=== PATIENT | female | born 1990 | race Caucasian/White ===

== ENCOUNTER 2017-07-11 19:36 | Emergency (ER) | payer MEDICAID, BC ==
[2017-07-11] MEDS: SOD CHLORIDE 0.9% 1,000 ML IV (21:57)
[2017-07-11 22:17] LABS: ADD MAN DIFF? NO
[2017-07-11 22:19] LABS: WHITE BLOOD COUNT 12.7 10^3/ul (4.8-10.8)
[2017-07-11 22:19] LABS: BASOPHILS % 0.3 % (0.0-2.0); EOSINOPHILS # 0.1 10^3/ul (0.0-0.5); EOSINOPHILS % 0.7 % (0.0-7.0); HEMATOCRIT 41.4 % (37.0-47.0); HEMOGLOBIN 13.9 g/dl (12.0-16.0); LYMPHOCYTES # 3.2 10^3/ul (0.8-2.9); LYMPHOCYTES % 25.1 % (15.0-51.0); MEAN CORPUSCULAR HGB CONC 33.6 g/dl (32.0-37.0); MEAN CORPUSCULAR VOLUME 86.3 fl (82.0-101.0); MEAN PLATELET VOLUME 11.7 fl (7.4-10.4); MONOCYTE # 0.8 10^3/ul (0.3-0.9); MONOCYTES % 5.9 % (0.0-11.0); NEUTROPHIL # 8.6 10^3/ul (1.6-7.5); NEUTROPHILS % 67.7 % (39.0-77.0); PLATELET COUNT 291 10^3/UL (140-415); RED CELL DISTRIBUTION WIDTH 12.4 % (11.5-14.5)
[2017-07-11 22:32] LABS: ADD UMIC NO; UR ASCORBIC ACID NEGATIVE (NEGATIVE); UR BILIRUBIN (Dip) NEGATIVE (NEGATIVE); UR BLOOD (Dip) NEGATIVE (NEGATIVE); UR CLARITY SLIGHTLY CLOUDY (CLEAR); UR COLOR YELLOW (YELLOW); UR GLUCOSE (Dip) NEGATIVE (NEGATIVE); UR KETONES (Dip) TRACE mg/dL (NEGATIVE); UR LEUKOCYTE ESTERASE (Dip) NEGATIVE Leu/ul (NEGATIVE); UR MUCUS MANY /HPF (NONE SEEN); UR NITRITE (Dip) NEGATIVE (NEGATIVE); UR RBC 0 /HPF (0-5); UR SPECIFIC GRAVITY (Dip) 1.028 (1.003-1.030); UR SQUAMOUS EPITHELIAL CELL MODERATE /HPF (FEW); UR TOTAL PROTEIN (Dip) NEGATIVE (NEGATIVE); UR UROBILINOGEN (Dip) NEGATIVE (NEGATIVE); UR WBC 1 /HPF (0-5)
[2017-07-11 22:39] LABS: ANION GAP 15 (8-16); BLOOD UREA NITROGEN 9 mg/dl (7-20); CALCIUM 9.8 mg/dl (8.4-10.2); CARBON DIOXIDE 24 mmol/L (21-31); CHLORIDE 104 mmol/L (97-110); CREATININE 0.49 mg/dl (0.44-1.00); GLUCOSE 93 mg/dl (70-220); POTASSIUM 3.9 mmol/L (3.5-5.1); SODIUM 139 mmol/L (135-144)
== END 2017-07-11 23:01 | disposition home or self-care (01) ==
LOC: FTE 19:36
DX: O21.1 Hyperemesis gravidarum with metabolic disturbance (principal); Z3A.12 12 weeks gestation of pregnancy
CPT/HCPCS: 36415; 76801; 80048; 81001; 81003; 85025; 99285-25

== ENCOUNTER 2017-09-23 12:26 | Emergency (ER) | payer OTHER ==
[2017-09-23 12:57] LABS: ADD MAN DIFF? NO
[2017-09-23 13:09] LABS: BASOPHILS % 0.3 % (0.0-2.0); EOSINOPHILS # 0.1 10^3/ul (0.0-0.5); EOSINOPHILS % 0.4 % (0.0-7.0); HEMATOCRIT 37.3 % (37.0-47.0); HEMOGLOBIN 12.5 g/dl (12.0-16.0); LYMPHOCYTES # 2.1 10^3/ul (0.8-2.9); LYMPHOCYTES % 17.1 % (15.0-51.0); MEAN CORPUSCULAR HEMOGLOBIN 28.8 pg (29.0-33.0); MEAN CORPUSCULAR HGB CONC 33.5 g/dl (32.0-37.0); MEAN CORPUSCULAR VOLUME 85.9 fl (82.0-101.0); MONOCYTE # 0.7 10^3/ul (0.3-0.9); MONOCYTES % 5.5 % (0.0-11.0); NEUTROPHIL # 9.1 10^3/ul (1.6-7.5); NEUTROPHILS % 75.6 % (39.0-77.0); PLATELET COUNT 249 10^3/UL (140-415); RED BLOOD COUNT 4.34 10^6/ul (4.20-5.40); RED CELL DISTRIBUTION WIDTH 13.7 % (11.5-14.5)
[2017-09-23 13:38] LABS: ANION GAP 14 (8-16); BLOOD UREA NITROGEN 10 mg/dl (7-20); CALCIUM 9.2 mg/dl (8.4-10.2); CARBON DIOXIDE 19 mmol/L (21-31); CHLORIDE 107 mmol/L (97-110); CREATININE 0.49 mg/dl (0.44-1.00); GLUCOSE 92 mg/dl (70-220); POTASSIUM 3.8 mmol/L (3.5-5.1); SODIUM 136 mmol/L (135-144)
[2017-09-23 13:49] LABS: TROPONIN-I < 0.010 ng/ml (0.000-0.120)
== END 2017-09-23 15:39 | disposition home or self-care (01) ==
LOC: E/R 12:26
DX: R55 Syncope and collapse (principal)
CPT/HCPCS: 71045; 80048; 84484; 85025; 93005; 99285-25

== ENCOUNTER 2017-12-29 11:58 | Emergency (ER) | payer OTHER | END 2017-12-29 13:36 | disposition home or self-care (01) | LOC: FTE 11:58 | DX: O99.513 Diseases of the respiratory system complicating pregnancy, third trimester (principal); J32.9 Chronic sinusitis, unspecified; J06.9 Acute upper respiratory infection, unspecified; Z3A.37 37 weeks gestation of pregnancy | CPT/HCPCS: 99283; Z7502 ==

== ENCOUNTER 2017-12-29 12:58 | Outpatient (CLI) | payer OTHER | END 2017-12-29 15:19 | disposition home or self-care (01) | LOC: OBT 12:58 → L-D 12:58 → OBT 15:19 | DX: O62.9 Abnormality of forces of labor, unspecified (principal); Z3A.36 36 weeks gestation of pregnancy | CPT/HCPCS: 76818 ==

== ENCOUNTER 2018-01-16 19:11 | Inpatient (IN) | payer OTHER ==
[2018-01-16 20:09] LABS: ADD UMIC YES; UR ASCORBIC ACID NEGATIVE (NEGATIVE); UR BACTERIA FEW /HPF (NONE SEEN); UR BILIRUBIN (Dip) NEGATIVE (NEGATIVE); UR BLOOD (Dip) NEGATIVE (NEGATIVE); UR CLARITY SLIGHTLY CLOUDY (CLEAR); UR COLOR YELLOW (YELLOW); UR GLUCOSE (Dip) NEGATIVE (NEGATIVE); UR KETONES (Dip) 2+ mg/dL (NEGATIVE); UR LEUKOCYTE ESTERASE (Dip) 3+ Leu/ul (NEGATIVE); UR MUCUS FEW /HPF (NONE SEEN); UR NITRITE (Dip) NEGATIVE (NEGATIVE); UR RBC 4 /HPF (0-5); UR SPECIFIC GRAVITY (Dip) 1.015 (1.003-1.030); UR SQUAMOUS EPITHELIAL CELL FEW /HPF (FEW); UR TOTAL PROTEIN (Dip) NEGATIVE (NEGATIVE); UR UROBILINOGEN (Dip) 2+ mg/dL (NEGATIVE); UR WBC 3 /HPF (0-5)
[2018-01-16] MEDS: SOD CHLORIDE 0.9% 1,000 ML IV (22:40)
[2018-01-16] MEDS ORDERED: ACETAMINOPHEN 325 MG TAB (23:35)
[2018-01-16] MEDS: CEFTRIAXONE 1 GM/50 ML (PMX) 50 ML IVPB (23:40)
[2018-01-16] MEDS: ACETAMINOPHEN 325 MG TAB PO (23:45)
[2018-01-17] MEDS ORDERED: OXYTOCIN 30 UNITS/LR 500 ML IV (01:30)
[2018-01-17] MEDS ORDERED: METHYLERGONOVINE 0.2 MG INJ IM (01:30)
[2018-01-17] MEDS ORDERED: CARBOPROST 250 MCG INJ IM (01:30)
[2018-01-17] MEDS ORDERED: MISOPROSTOL 200 MCG TAB PR (01:30)
[2018-01-17] MEDS: LACTATED RINGER'S 1,000 ML IV ×3 (01:47→19:40)
[2018-01-17 04:20] LABS: ADD MAN DIFF? NO
[2018-01-17 04:24] LABS: BASOPHILS % 0.3 % (0.0-2.0); EOSINOPHILS # 0.1 10^3/ul (0.0-0.5); EOSINOPHILS % 0.6 % (0.0-7.0); HEMATOCRIT 31.7 % (37.0-47.0); HEMOGLOBIN 10.2 g/dl (12.0-16.0); LYMPHOCYTES # 2.6 10^3/ul (0.8-2.9); LYMPHOCYTES % 23.5 % (15.0-51.0); MEAN CORPUSCULAR HEMOGLOBIN 25.6 pg (29.0-33.0); MEAN CORPUSCULAR HGB CONC 32.2 g/dl (32.0-37.0); MEAN CORPUSCULAR VOLUME 79.6 fl (82.0-101.0); MONOCYTE # 0.7 10^3/ul (0.3-0.9); MONOCYTES % 6.5 % (0.0-11.0); NEUTROPHIL # 7.4 10^3/ul (1.6-7.5); NEUTROPHILS % 68.2 % (39.0-77.0); PLATELET COUNT 274 10^3/UL (140-415); RED BLOOD COUNT 3.98 10^6/ul (4.20-5.40); RED CELL DISTRIBUTION WIDTH 14.9 % (11.5-14.5)
[2018-01-17 04:24] LABS: WHITE BLOOD COUNT 10.8 10^3/ul (4.8-10.8)
[2018-01-17 04:43] LABS: INR 1.02; PROTIME 13.5 Sec (11.9-14.9); PT RATIO 1.1
[2018-01-17 04:44] LABS: PARTIAL THROMBOPLASTIN TIME 28.5 Sec (23.0-35.0)
[2018-01-17 05:13] LABS: HEPATITIS B SURFACE ANTIGEN NEGATIVE (NEGATIVE)
[2018-01-17] MEDS: TERBUTALINE 1 MG/ML INJ SC (05:34)
[2018-01-17] MEDS ORDERED: METOCLOPRAMIDE 10 MG INJ (07:00)
[2018-01-17] MEDS ORDERED: BUPIVACAINE 0.75%/DEXT (SPINAL) 2 ML INJ (12:32)
[2018-01-17] MEDS ORDERED: morphine SULFATE/PF (10 MG/10 ML) INJ (12:32)
[2018-01-17] MEDS ORDERED: OXYTOCIN 10 UNIT INJ (12:52)
[2018-01-17] MEDS ORDERED: MIDAZOLAM 1 MG/ML 2 ML INJ (12:54)
[2018-01-17] MEDS ORDERED: ONDANSETRON 4 MG INJ (12:55)
[2018-01-17] MEDS ORDERED: DIPHENHYDRAMINE 50 MG INJ IV ×2 (13:30)
[2018-01-17] MEDS ORDERED: NALOXONE (0.4 MG/ML) INJ IV (13:30)
[2018-01-17] MEDS ORDERED: NALBUPHINE HCL (10 MG/1 ML) INJ IV (13:30)
[2018-01-17] MEDS ORDERED: ONDANSETRON 4 MG INJ IV (13:30)
[2018-01-17] MEDS ORDERED: MEPERIDINE 25 MG INJ IV (13:30)
[2018-01-17] MEDS ORDERED: HYDROmorphONE 0.5 MG/0.5 ML SYG IV ×2 (13:30)
[2018-01-17] MEDS ORDERED: ZOLPIDEM 5 MG TAB PO (13:30)
[2018-01-17] MEDS ORDERED: MIDAZOLAM 1 MG/ML 2 ML INJ IV (13:30)
[2018-01-17] MEDS: ONDANSETRON 4 MG INJ IV (14:31)
[2018-01-17] MEDS: KETOROLAC 30 MG INJ IV (15:39)
[2018-01-17] MEDS: OXYTOCIN 30 UNITS/LR 500 ML IV (15:51)
[2018-01-17 20:31] LABS: RAPID PLASMA REAGIN NONREACTIVE (NR)
[2018-01-17] MEDS: CEFAZOLIN 2 GM/50 ML (PMX) 50 ML IVPB (20:57)
[2018-01-18] MEDS: LACTATED RINGER'S 1,000 ML IV (03:51)
[2018-01-18 05:06] LABS: ADD MAN DIFF? NO; BASOPHILS % 0.3 % (0.0-2.0); EOSINOPHILS % 0.3 % (0.0-7.0); HEMATOCRIT 29.6 % (37.0-47.0); HEMOGLOBIN 9.4 g/dl (12.0-16.0); LYMPHOCYTES # 1.6 10^3/ul (0.8-2.9); LYMPHOCYTES % 15.2 % (15.0-51.0); MEAN CORPUSCULAR HEMOGLOBIN 25.5 pg (29.0-33.0); MEAN CORPUSCULAR HGB CONC 31.8 g/dl (32.0-37.0); MEAN CORPUSCULAR VOLUME 80.2 fl (82.0-101.0); MEAN PLATELET VOLUME 11.9 fl (7.4-10.4); MONOCYTE # 0.8 10^3/ul (0.3-0.9); MONOCYTES % 7.9 % (0.0-11.0); NEUTROPHILS % 75.7 % (39.0-77.0); PLATELET COUNT 268 10^3/UL (140-415); RED BLOOD COUNT 3.69 10^6/ul (4.20-5.40); RED CELL DISTRIBUTION WIDTH 15.2 % (11.5-14.5)
[2018-01-18 05:06] LABS: WHITE BLOOD COUNT 10.5 10^3/ul (4.8-10.8)
[2018-01-18] MEDS: KETOROLAC 30 MG INJ IV (10:47)
[2018-01-18] MEDS ORDERED: MAGNESIUM HYDROXIDE 30ML CUP PO (14:30)
[2018-01-18] MEDS ORDERED: OXYCODONE/ACETAMINOPHEN (5/325) TAB PO (14:30)
[2018-01-18] MEDS ORDERED: LANOLIN 7 GM TUBE TOP ×2 (14:30→16:00)
[2018-01-18] MEDS: OXYCODONE/ACETAMINOPHEN (5/325) TAB PO (15:00)
[2018-01-18] MEDS: IBUPROFEN 600 MG TAB PO (18:12)
[2018-01-18] MEDS: SENNA TAB PO (21:58)
[2018-01-19] MEDS: IBUPROFEN 600 MG TAB PO ×4 (00:22→17:57)
[2018-01-19] MEDS: SENNA TAB PO ×2 (09:07→21:01)
[2018-01-20] MEDS: IBUPROFEN 600 MG TAB PO ×4 (00:02→18:05)
[2018-01-20] MEDS: SENNA TAB PO (08:40)
[2018-01-20] MEDS: DIPHTH/TET/ACEL PERTUSS (ADULT) 0.5 ML VIAL IM* (09:00)
== END 2018-01-20 18:50 | disposition home or self-care (01) | DRG 784 ==
LOC: OBT 19:11 → L-D 19:12 → PP1 01-19 16:11 → MS1 01-17 19:34
PROC: 10D00Z1 Extraction of Products of Conception, Low, Open Approach (ICD-10-PCS; principal; 2018-01-18)
PROC: 0UB70ZZ Excision of Bilateral Fallopian Tubes, Open Approach (ICD-10-PCS; 2018-01-18)
DX: O36.8130 Decreased fetal movements, third trimester, not applicable or unspecified (principal); O23.43 Unspecified infection of urinary tract in pregnancy, third trimester; Z3A.39 39 weeks gestation of pregnancy; Z37.0 Single live birth; O34.211 Maternal care for low transverse scar from previous cesarean delivery; Z30.2 Encounter for sterilization
CPT/HCPCS: 36415; 76818; 81001; 85025; 85610; 85730; 86592; 86850; 86900; 86901; 87340; 88302; 90686; 96360; 96361; 96365; 99464